=== PATIENT | female | born 1970 | race African-American/Black ===

== ENCOUNTER 2021-05-20 22:37 | Emergency (ER) | payer OTHER ==
[~2021-05-20] VITALS: Ht 170.2 cm; Wt 80.0 kg
[2021-05-20 23:10] VITALS: BP 187/89
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
[2021-05-21] MEDS ORDERED: IBUPROFEN 200 MG TABLET. PO ONE (00:30)
== END 2021-05-21 00:30 | disposition home or self-care (01) ==
LOC: ER 22:37
DX: S13.9XXA Sprain of joints and ligaments of unspecified parts of neck, initial encounter (principal); S00.03XA Contusion of scalp, initial encounter; I10 Essential (primary) hypertension; I48.91 Unspecified atrial fibrillation; Y08.89XA Assault by other specified means, initial encounter; Y93.89 Activity, other specified; Y92.69 Other specified industrial and construction area as the place of occurrence of the external cause; Y99.0 Civilian activity done for income or pay
CPT/HCPCS: 70450; 72125; 99284-25